=== PATIENT | male | born 1960 | race African-American/Black ===

== ENCOUNTER 2017-05-24 00:43 | Inpatient (IN) | payer OTHER ==
[~2017-05-24] VITALS: Ht 188 cm; Wt 94.0 kg
[~2017-05-24 00:43] MED LIST: CEPH500C3 PO; HYDR-3533 PO
[2017-05-24 00:44] VITALS: BP 128/73; PULSE 79; RESP 16; TEMP 99; O2SAT 96
--- NOTE | 2017-05-24 00:57 | PD ---
HPI Chief Complaint: Injury Time Seen by Provider: 00:57 Travel History International Travel<30 days: No Contact w/Intl Traveler<30days: No Traveled to known affect area: No History of Present Illness HPI 57-year-old male came to the emergency room with history of right knee injury. Patient is not sure what happened but he thinks that he may have stepped on a pothole. Happened about 45 minutes ago. Since then he feels like he cannot bear weight on his knee since it has no strength. He tried standing up and fell landing on his knee again. Patient is not complaining so much of pain but says that he feels like his knee joint is deformed. 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 Vital signs are stable. [facility] Past Medical History Narrative Medical List of his past medical, surgical, social and family history is reviewed from the nursing note. Diminished Hearing: No Past Surgical History Other Surgery: Yes (CHEMO NUCLEALISIS OF DISC ) Social History Alcohol Use: No Tobacco Use: No Substance Use: No Allergies-Medications (Allergen,Severity, Reaction): Coded Allergies: No Known Allergies (Verified Adverse Reaction, Unknown, 05/24/17) Comments No known drug allergies. Reported Meds & Prescriptions Reported Meds & Active Scripts Active Reported Aspirin 325 Mg Tab 325 Mg PO DAILY Narrative Medication List of his home medications reviewed from the nursing note. Review of Systems Except as stated in HPI: all other systems reviewed are Neg Physical Exam Narrative GENERAL: Awake, alert, no obvious distress SKIN: Focused skin assessment warm/dry. HEAD: Atraumatic. Normocephalic. EYES: Pupils equal and round. No scleral icterus. No injection or drainage. ENT: No nasal bleeding or discharge. Mucous membranes pink and moist. NECK: Trachea midline. No JVD. CARDIOVASCULAR: Regular rate and rhythm. No murmur appreciated. RESPIRATORY: No accessory muscle use. Clear to auscultation. Breath sounds equal bilaterally. GASTROINTESTINAL: Abdomen soft, non-tender, nondistended. Hepatic and splenic margins not palpable. MUSCULOSKELETAL: Right knee deformity in the form of significant depression in the suprapatellar area with detached quadricep tendon that can be palpated about an inch proximal to the patella. No clubbing. No cyanosis. No edema. NEUROLOGICAL: Awake and alert. No obvious cranial nerve deficits. Motor grossly within normal limits. Normal speech. PSYCHIATRIC: Appropriate mood and affect; insight and judgment normal. Data Data Last Documented VS Vital Signs Date Time Temp Pulse Resp B/P (MAP) Pulse Ox O2 Delivery O2 Flow Rate FiO2 05/24/17 01:05 Room Air 05/24/17 00:44 99.0 79 16 128/73 (91) 96 Orders Orders Knee, Comp Inc Add Vws(4+Vws) (05/24/17 ) ^ Knee Immobilizer (05/24/17 01:43) Admit Order (Ed Use Only) (05/24/17 02:23) MDM Medical Decision Making Medical Screen Exam Complete: Yes Emergency Medical Condition: Yes Medical Record Reviewed: Yes Differential Diagnosis Quadricep tendon rupture, patellar fracture Narrative Course 2:28 AM x-rays negative for any fracture. Based on the clinical diagnosis I discussed the case with Dr. Montes De Oca who is on-call for orthopedics. Wanted the patient to be medically admitted and Dr. Kerns will try to fit in his case in the morning as per him. He wants the patient nothing by mouth. I've explained all this to the patient. I discussed the case with the hospitalist has accepted the patient. Procedures EKG Prior to Arrival: No Physician Communication Physician Communication Dr. Martínez Diagnosis Primary Impression: Quadriceps tendon rupture Qualified Codes: S76.111A - Strain of right quadriceps muscle, fascia and tendon, initial encounter Admitting Information Admitting Physician Requests: it Tyson Malik MD May 24, 2017 00:57
[2017-05-24] MEDS ORDERED: ASPI-183 PO (01:10)
--- NOTE | 2017-05-24 01:33 | RADRPT ---
EXAM DATE/TIME: 05/24/2017 01:17 [facility] COMPARISON: No previous studies available for comparison. INDICATIONS : Pt fell onto right knee MEDICAL HISTORY : None. SURGICAL HISTORY : None. ENCOUNTER: Initial ACUITY: 1 day PAIN SCORE: 8/10 LOCATION: Right Knee FINDINGS: The bony structures are grossly intact. No joint effusion is seen. No definite fracture or joint di slocation is seen. There are 2 well-corticated loose bodies in the suprapatellar region. CONCLUSION: No acute disease. Nitin Solorzano MD on May 24, 2017 at 1:31 Board Certified Radiologist. This report was verified electronically.
[2017-05-24] MEDS ORDERED: SODIUM CHLORIDE 0.9% FLUSH 10 ML FLUSH IV FLUSH PRN (02:45)
[2017-05-24] MEDS ORDERED: NALOXONE HCL 0.4 MG/ML AMP IV PUSH PRN (02:45)
[2017-05-24] MEDS ORDERED: MORPHINE SULFATE 2 MG/ML INJ IV PUSH PRN (02:45)
[2017-05-24 03:30] VITALS: BP 118/72; PULSE 64; RESP 18; TEMP 97.1; O2SAT 96
[2017-05-24] MEDS ORDERED: POVIDONE IODINE 5% (ANTISEPSIS KIT) 4 APPLICATIONS EACH NARE PRN (03:45)
[2017-05-24] MEDS ORDERED: SODIUM CHLORID 0.9% 500 ML IV PRN (03:45)
[2017-05-24] MEDS ORDERED: METOPROLOL TARTRATE 25 MG TAB PO PRN (03:45)
[2017-05-24] MEDS ORDERED: INSULIN HUMAN REGULAR 1,000 UNITS/10 ML VIAL SQ PRN (03:45)
[2017-05-24] MEDS ORDERED: LACTATED RINGER'S 1000 ML IV PRN (03:45)
[2017-05-24] MEDS ORDERED: CHLORHEXIDINE GLUCONATE 2 % 1 PACK (2 CLOTHS) TOPICAL PRN (03:45)
--- NOTE | 2017-05-24 04:34 | HHI.HP ---
HPI Service [place] [facility] Primary Care Physician [facility] Admission Diagnosis quadricep tendon rupture Diagnoses: Travel History International Travel<30 Days: No Contact w/Intl Traveler <30 Da: No Traveled to Known Affected Are: No History of Present Illness hx from patient, ER MD and nursing staff slipped on wet pavement during the rain fell onto right knee no syncope did not pass out takes asa 325 mg daily no premonitory symptoms had second fall after he immediately get up from the fall and realized cant support the weight no other symptoms Review of Systems Except as stated in HPI: all other systems reviewed are Neg Past Family Social History Past Medical History last stress test was 2 yrs ago and wnl Past Surgical History 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 dislocated shoulder sx Reported Medications asa 325mg po daily pde tums Allergies: Coded Allergies: No Known Allergies (Verified Allergy, Unknown, 05/24/17) Family History father lung cancer mom gi ulcer sister dm, htn Social History occasionally smokes - never on regular basis drinks wine a couple of glasses a night no drugs Physical Exam Vital Signs Vital Signs Date Time Temp Pulse Resp B/P (MAP) Pulse Ox O2 Delivery O2 Flow Rate FiO2 05/24/17 03:30 05/24/17 01:05 Room Air 05/24/17 00:44 99.0 79 16 128/73 (91) 96 Room Air Physical Exam GENERAL: This is a well-nourished, well-developed patient, in no apparent distress. SKIN: No rashes, ecchymoses or lesions. Cool and dry. HEAD: Atraumatic. Normocephalic. No temporal or scalp tenderness. EYES: No scleral icterus. No injection or drainage. ENT: Nose without bleeding, purulent drainage or septal hematoma. Airway patent. NECK: Trachea midline. No JVD CARDIOVASCULAR: Regular rate and rhythm without murmurs, gallops, or rubs. RESPIRATORY: Clear to auscultation. Breath sounds equal bilaterally. No wheezes , rales, or rhonchi. GASTROINTESTINAL: Abdomen soft, non-tender, nondistended. No guarding. MUSCULOSKELETAL: Extremities without clubbing, cyanosis, or edema. No calf tenderness. right knee in knee immobilizer NEUROLOGICAL: Awake and alert. Motor and sensory grossly within normal limits. . Normal speech. Imaging Last 48 hours Impressions Knee X-Ray 05/24/17 0000 Signed Impressions: Service Date/Time: Wednesday, May 24, 2017 01:17 - CONCLUSION: No acute disease. Nitin Solorzano MD Chest X-Ray 05/24/17 0000 Signed Impressions: Service Date/Time: Wednesday, May 24, 2017 04:43 - CONCLUSION: No acute disease. MD Ana Car VTE Risk Assessment Caprini VTE Risk Assessment: Mod/High Risk (score >= 2) Caprini Risk Assessment Model Point Value = 1 Point Value = 2 Point Value = 3 Point Value = 5 Age 41-60 Minor surgery BMI > 25 kg/m2 Swollen legs Varicose veins or History of unexplained or recurrent spontaneous Oral contraceptives or hormone replacement Sepsis (< 1 month) Serious lung disease, including pneumonia (< 1 month) Abnormal pulmonary function Acute myocardial infarction Congestive heart failure (< 1 month) History of inflammatory bowel disease Medical patient at bed rest Age 61-74 Arthroscopic surgery Major open surgery (> 45 min) Laparoscopic surgery (> 45 min) Malignancy Confined to bed (> 72 hours) Immobilizing plaster cast Central venous access Age >= 75 History of VTE Family history of VTE Factor V Leiden Prothrombin [id number] Lupus anticoagulant Anticardiolipin antibodies Elevated serum homocysteine Heparin-induced thrombocytopenia Other congenital or acquired thrombophilia Stroke (< 1 month) Elective arthroplasty Hip, pelvis, or leg fracture Acute spinal cord injury (< 1 month) Prophylaxis Regimen Total Risk Factor Score Risk Level Prophylaxis Regimen 0-1 Low Early ambulation 2 Moderate Order ONE of the following: *Sequential Compression Device (SCD) *Heparin 5000 units SQ BID 3-4 Higher Order ONE of the following medications: *Heparin 5000 units SQ TID *Enoxaparin/Lovenox 40 mg SQ daily (WT < 150 kg, CrCl > 30 mL/min) *Enoxaparin/Lovenox 30 mg SQ daily (WT < 150 kg, CrCl > 10-29 mL/min) *Enoxaparin/Lovenox 30 mg SQ BID (WT < 150 kg, CrCl > 30 mL/min) AND/OR *Sequential Compression Device (SCD) 5 or more Highest Order ONE of the following medications: *Heparin 5000 units SQ TID (Preferred with Epidurals) *Enoxaparin/Lovenox 40 mg SQ daily (WT < 150 kg, CrCl > 30 mL/min) *Enoxaparin/Lovenox 30 mg SQ daily (WT < 150 kg, CrCl > 10-29 mL/min) *Enoxaparin/Lovenox 30 mg SQ BID (WT < 150 kg, CrCl > 30 mL/min) AND *Sequential Compression Device (SCD) Assessment and Plan Assessment and Plan Impression: s/p fall right patella tendon rutpure daily alcohol use Plan: ortho consulted OR in am pain control thiamine ciwa protocol preop labs, ekg, cxr dvt prophylaxis post op with lovenox Discussed Condition With patient, ER MD , nursing staff Physician Certification 2 Midnight Certification Type: Admission for Inpatient Services Order for Inpatient Services The services are ordered in accordance with Medicare regulations or non- Medicare payer requirements, as applicable. In the case of services not specified as inpatient-only, they are appropriately provided as inpatient services in accordance with the 2-midnight benchmark. Estimated LOS (days): 2 days is the estimated time the patient will need to remain in the hospital, assuming treatment plan goals are met and no additional complications. Post-Hospital Plan: Home Cuate Dye MD May 24, 2017 04:34
--- NOTE | 2017-05-24 05:43 | RADRPT ---
EXAM DATE/TIME: 05/24/2017 04:43 [facility] COMPARISON: No previous studies available for comparison. INDICATIONS : Evaluate for pneumonia, pneumothorax, or other communicable diseases. Pre-op. MEDICAL HISTORY : None. SURGICAL HISTORY : None. ENCOUNTER: Initial ACUITY: 1 day PAIN SCORE: 0/10 LOCATION: Bilateral chest FINDINGS: A single view of the chest demonstrates the lungs to be symmetrically aerated without evidence of mas s, infiltrate or effusion. The cardiomediastinal contours are unremarkable. Osseous structures are intact. CONCLUSION: No acute disease. Nitin Solorzano MD on May 24, 2017 at 5:42 Board Certified Radiologist. This report was verified electronically.
[2017-05-24 06:21] LABS: AUTOMATED NEUTROPHIL # 4.8 TH/MM3 (1.8-7.7); BASOPHIL % 0.3 % (0.0-2.0); EOSINOPHIL # 0.2 TH/MM3 (0-0.4); EOSINOPHIL % 2.5 % (0.0-4.0); HEMATOCRIT 38.7 % (39.0-51.0); HEMO FLAGS DIFF FINAL; LYMPH % 31.1 % (9.0-44.0); LYMPHOCYTE # 2.7 TH/MM3 (1.0-4.8); MEAN CELL VOLUME 96.5 FL (80.0-100.0); MEAN CORPUSCULAR HEMOGLOBIN 32.8 PG (27.0-34.0); MONO % 11.9 % (0.0-8.0); NEUT % 54.2 % (16.0-70.0); PLATELET COUNT 190 TH/MM3 (150-450); RED BLOOD COUNT 4.01 MIL/MM3 (4.50-5.90); RED CELL DISTRIBUTION WIDTH 14.8 % (11.6-17.2); WHITE BLOOD COUNT 8.8 TH/MM3 (4.0-11.0)
[2017-05-24] MEDS ORDERED: FLUMAZENIL 0.5 MG/5 ML VIAL IV PUSH PRN (06:30)
[2017-05-24] MEDS ORDERED: LORazepam 2 MG/ML VIAL IV PUSH PRN ×4 (06:30)
[2017-05-24] MEDS ORDERED: LORazepam 1 MG TAB PO PRN (06:30)
[2017-05-24] MEDS ORDERED: LORazepam 2 MG TAB PO PRN (06:30)
[2017-05-24] MEDS ORDERED: THIAMINE INJ 100 MG in SODIUM CHLORIDE 0.9% INJ 100 ML IV ONE (06:30)
[2017-05-24 06:38] LABS: ANION GAP 7 MEQ/L (5-15); APTT (PATIENT) 23.1 SEC (24.3-30.1); AST (GOT) 33 U/L (15-37); BICARBONATE 25.1 MEQ/L (21.0-32.0); BLOOD UREA NITROGEN 10 MG/DL (7-18); CHLORIDE 108 MEQ/L (98-107); GLOMERULAR FILTRATION RATE 127 ML/MIN (>89); INTERNATIONAL NORMALIZED RATIO 1.1 RATIO; POTASSIUM 3.8 MEQ/L (3.5-5.1); PROTHROMBIN TIME - PATIENT 11.1 SEC (9.8-11.6); SODIUM (NA) 140 MEQ/L (136-145)
[2017-05-24 06:39] LABS: ALT (GPT) 30 U/L (12-78)
[2017-05-24 06:42] LABS: ALKALINE PHOSPHATASE 34 U/L (45-117); TOTAL BILIRUBIN ADULT 0.3 MG/DL (0.2-1.0)
--- NOTE | 2017-05-24 06:48 | PD.ORT.PN ---
Subjective Subjective Remarks s/p fall at home reports right knee pain no other complaints. Objective Vitals Vital Signs Date Time Temp Pulse Resp B/P (MAP) Pulse Ox O2 Delivery O2 Flow Rate FiO2 05/24/17 03:30 05/24/17 03:30 97.1 64 18 118/72 (87) 96 05/24/17 01:05 Room Air 05/24/17 00:44 99.0 79 16 128/73 (91) 96 Room Air Result Diagram: 05/24/17 0540 05/24/17 0540 Other Results Laboratory Tests Test 05/24/17 05:40 Prothromb Time International Ratio 1.1 RATIO Prothrombin Time 11.1 SEC (9.8-11.6) Imaging Last 24 hours Impressions Knee X-Ray 05/24/17 0000 Signed Impressions: Service Date/Time: Wednesday, May 24, 2017 01:17 - CONCLUSION: No acute disease. Nitin Solorzano MD Chest X-Ray 05/24/17 0000 Signed Impressions: Service Date/Time: Wednesday, May 24, 2017 04:43 - CONCLUSION: No acute disease. Nitin Solorzano MD Objective Remarks RLE: +knee brace. palpable and visible deformity proximal to the patella. nvi Assessment & Plan Assessment and Plan 1) right Quad tendon rupture -npo -consents -surgery today Dav Gregorio/Pewter Fabricator ANETA May 24, 2017 06:48
[2017-05-24] MEDS ORDERED: WALKER/ADULT/FO1 MIS (06:49)
[2017-05-24] MEDS ORDERED: HYDR-3580 PO (06:49)
--- NOTE | 2017-05-24 06:50 | HHI.FF ---
Face to Face Verification Diagnosis: (1) Quadriceps tendon rupture Physical Therapy Gait training, Safety evaluation Canvas Knee Splint: At all times Right LE Weight Bearing: Non WB (no more than 50lbs), No Strengthening, No Quad Sets Right LE Range of Motion: No ROM Nursing Dressing Changes: Do not change dressing, Gil wrap, 4x4s, Xeroform I have seen patient Raman Matute on 05/24/17. My clinical findings support the need for the requested home health care services because: Ltd mobility - disease progression I certify that my clinical findings support that this patient is homebound because: Post-op weakness Dav Gregorio/First Janette CORNELL May 24, 2017 06:50
--- NOTE | 2017-05-24 07:49 | EKG ---
Date Performed: 05/24/2017 Time Performed: 05:49:33 PTAGE: 57 years EKG: SINUS BRADYCARDIA BORDERLINE ECG INTERPRETATION BASED ON A DEFAULT AGE OF 41 YEARS NO PREVIOUS TRACING DOCTOR: Elier Gongora Interpretating Date/Time 05/24/2017 07:48:36
[2017-05-24 08:00] VITALS: BP 133/79; PULSE 65; RESP 18; TEMP 97.4; O2SAT 100
[2017-05-24] MEDS ORDERED: BUPIVACAINE/EPINEPHRINE 0.25% PF 30 ML VIAL ONE (08:52)
[2017-05-24] MEDS ORDERED: GENTAMICIN SULFATE 80 MG/2 ML VIAL ONE (08:52)
[2017-05-24] MEDS ORDERED: VANCOMYCIN HCL 1000 MG VIAL ONE (08:52)
[2017-05-24] MEDS: SODIUM CHLORIDE 0.9% FLUSH 10 ML FLUSH IV FLUSH SCH ×2 (09:00→21:30)
--- NOTE | 2017-05-24 11:02 | PD.OP ---
cc: Dylan Kerns MD Operative Report Date of Surgery: May 24, 2017 Preoperative Diagnosis: Right quadriceps tendon rupture Postoperative Diagnosis: Procedure: Primary repair right quadriceps tendon Surgeon: Dylan Kerns Talent Recruiter(s): ROSALIE Díaz PA-C The surgical procedure was assisted by my physician assistant professor of marine biology. My P.A. presence was necessary throughout this case for the manipulation and positioning of the surgical extremity. My P.A. was assisting me throughout the duration of this procedure. The skill set of a physician assistant professor of marine biology was medically necessary to complete this procedure. During the surgical case the surgical dressing maker was working at the back table and the physician assistant professor of marine biology was directly assisting me. Operation and Findings: Plan of activity: CKS at all times, Partial weightbearing 50 lbs with knee immobilizer on, start passive range of motion knee 0-45 in 2 weeks This patient had an injury resulting in complete right quadriceps tendon rupture. Informed consent was confirmed preoperatively and informed consent was obtained. I had a detailed discussion with the patient regarding the risks and benefits of surgery. Patient was brought to the operating room and placed on the OR table. IV sedation and GETA were administered by anesthesiologist and IV antibiotics were given prior to incision. A timeout procedure was performed. The operative leg was prepped with alcohol followed by Hibiclens and draped in the usual sterile fashion. The procedure began with a 4-inch incision over the anterior knee. Subcutaneous tissue was dissected with Bovie. At this point the proximal patella and distal quadriceps tendon were visualized. The knee joint was thoroughly irrigated. The proximal pole patella was lightly debrided with a rongeur. At this point attention was turned to quadriceps tendon repair. 3 drill tunnels were created from superior pole of the patella to the inferior pole of the patella. Two #5 FiberWire sutures were now placed into the quadriceps tendon in a Leeds style fashion. The sutures were now passed through the drill holes of the patella. The patella was now reduced to the quadriceps tendon. Sutures were tensioned and tied. The remainder of the retinaculum was now closed with #1 Vicryls. Subcutaneous tissue was closed with 3-0 Vicryl and skin was closed with paradise. Sterile dressings were applied. The patient placed into a knee immobilizer and was transferred to recovery in stable condition. Needle and sponge counts were correct. Dylan Kerns MD May 24, 2017 11:01
[2017-05-24] MEDS ORDERED: *morphine SULFATE 8 MG/ML PERIprocedure ONLY ONE (11:31)
[2017-05-24] MEDS ORDERED: DEXAMETHASONE SOD PHOS 4 MG/ML VIAL ONE (11:32)
[2017-05-24] MEDS ORDERED: BUPIVACAINE HCL PF 0.5% 30 ML VIAL ONE (11:32)
--- NOTE | 2017-05-24 11:54 | MB ---
cc: JOANNE SANTIAGO DATE OF CONSULTATION: 05/24/2017 REASON FOR CONSULTATION: Right knee quadriceps tendon rupture. CONSULTING PHYSICIAN Dr. 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 He slipped on wet pavement causing injury to his right knee. He had difficulty standing or ambulating. He presented to the emergency room. Evaluation in the emergency department revealed a quadriceps tendon rupture. He is currently awake and alert on the orthopedic floor. His only complaint is his right knee. Pain is worse with movement, it is improved with rest. PAST MEDICAL HISTORY None. MEDICATIONS medications include Aspirin Tums ALLERGIES NO KNOWN DRUG ALLERGIES. SURGERIES The patient had a cervical chemonucleolysis at age 22 and surgery for shoulder dislocation. ILLNESSES The patient has had previous cardiac stress test which was reportedly normal. He denies any medical problems. FAMILY HISTORY: Family history is positive for lung cancer in father, and gastrointestinal cancer in his mother and diabetes in sister. SOCIAL HISTORY The patient drinks wine. He denies drug use. He smokes on occasion. REVIEW OF SYSTEMS The patient denies headache, visual changes, neck pain, chest pain, shortness of breath, abdominal pain ounce or recent weight loss, numbness and extremities. He complains of right leg pain. Pain is worse with movement. PHYSICAL EXAMINATION IN GENERAL: The patient is a well-developed, well-nourished 57-year male in no acute distress. He is awake and alert. He is alert and x3. VITAL SIGNS: Temperature 97.4, pulse 65, respirations 18, blood pressure 133/79, O2 sat 5% on room air. HEAD, EYES, EARS, NOSE, AND THROAT: The patient is normocephalic. Pupils are equal. NECK: Soft, nontender. Trachea is midline. ABDOMEN: Soft, nontender, nondistended. EXTREMITIES: Examination of bilateral upper extremities reveals no pain with shoulder or wrist motion. She has intact sensation in all fingers. She has good cap refill fingers. Examination of left leg reveals no pain with hip, knee or ankle motion. Skin is intact. Dorsalis pedis pulses palpable. Examination of right leg reveals no tenderness on his hip or ankle sensation is intact in right foot. Dorsalis pedis pulses palpable. Examination of his knee reveals a palpable defect along the quadriceps tendon. This skin is intact. His knee is stable to varus stress. RADIOLOGIC: X-rays of right knee were reviewed x-rays reveal that the patella Constricted inferiorly consistent with quadriceps tendon rupture. No fracture noted. IMPRESSION Right knee quadriceps tendon rupture. PLAN The treatment options were discussed with the patient at this point I would recommend primary repair of right quadriceps tendon. Risks of surgery include bleeding, infection, injury to blood vessels, knee stiffness, recurrent disruption of the quadriceps tendon as well as medical complications associated anesthesia. All questions were answered. I will plan on surgery today. A mid-level provider in my office (nurse practitioner or physician night assistant) may see this patient on follow-up visits and continue to implement the objectives of this plan including: Starting or adjusting medications, injections , cast application, orthotics, brace application, physical therapy, radiological studies (including x-ray, MRI, CT, ultrasound, bone scan), vascular studies, neurologic studies, specialist consultation, and proceeding with surgical management, as appropriate. MD PAUL Paulino/boyd /11:02 AM /11:46 AM SHAMIR
[2017-05-24] MEDS: LACTATED RINGER'S 1000 ML INJ 1,000 ML IV SCH (12:00)
[2017-05-24] MEDS ORDERED: MORPHINE SULFATE 4 MG/ML INJ IV PUSH PRN (12:00)
[2017-05-24] MEDS ORDERED: ONDANSETRON HCL 4 MG/2 ML VIAL IVP PRN (12:00)
[2017-05-24] MEDS ORDERED: diphenhydrAMINE HCL 25 MG CAP PO PRN (12:00)
[2017-05-24] MEDS ORDERED: Post-op Orders (for Pharmacy) MISC XX ONE (12:00)
[2017-05-24] MEDS ORDERED: ACETAMINOPHEN/HYDROcodone 325 MG/7.5 MG TAB PO PRN (12:00)
--- NOTE | 2017-05-24 12:04 | PD.ORT.PN ---
Subjective Subjective Remarks POD 0 s/p open repair of right quadriceps tendon stable in PACU Objective Vitals Vital Signs Date Time Temp Pulse Resp B/P (MAP) Pulse Ox O2 Delivery O2 Flow Rate FiO2 05/24/17 08:00 97.4 65 18 133/79 (97) 100 05/24/17 03:30 05/24/17 03:30 97.1 64 18 118/72 (87) 96 05/24/17 01:05 Room Air 05/24/17 00:44 99.0 79 16 128/73 (91) 96 Room Air I/O 05/23/17 05/23/17 05/23/17 05/24/17 05/24/17 05/24/17 07:00 15:00 23:00 07:00 15:00 23:00 Intake Total 0 ml 900 ml Output Total 400 ml 20 ml Balance -400 ml 880 ml Intake Oral 0 ml Other 900 ml Output Urine Total 400 ml Estimated Blood Loss 20 ml # Bowel Movements 0 Result Diagram: 05/24/17 0540 05/24/17 0540 Other Results Laboratory Tests Test 05/24/17 05:40 Prothromb Time International Ratio 1.1 RATIO Prothrombin Time 11.1 SEC (9.8-11.6) Imaging Last 24 hours Impressions Knee X-Ray 05/24/17 0000 Signed Impressions: Service Date/Time: Wednesday, May 24, 2017 01:17 - CONCLUSION: No acute disease. Nitin Solorzano MD Chest X-Ray 05/24/17 0000 Signed Impressions: Service Date/Time: Wednesday, May 24, 2017 04:43 - CONCLUSION: No acute disease. Nitin Solorzano MD Objective Remarks RLE: +knee brace. dressings clean and dry. intact. Assessment & Plan Assessment and Plan 1) Right Quad tendon rupture s/p open repair - POD 0 -CKS at all times -no ROM at this time. plan for advancement of ROM at discharge visit in 2 weeks -PWB up to 50lbs with knee brace on -daily dressing changes POD 2 -CM for HHC -plan for DC home with HHC Saturday if doing well -f/u with Gonzalez or PA in 2 weeks Dav Gregorio PA/Wire Weaver Cloth PA May 24, 2017 12:04
--- NOTE | 2017-05-24 12:23 | HHI.PR ---
Subjective Remarks patient was seen post-op; in no acute distress. s/p repair of the right Quadriceps tendon. denies pain at this time. no other complaints. Objective Vitals Vital Signs Date Time Temp Pulse Resp B/P (MAP) Pulse Ox O2 Delivery O2 Flow Rate FiO2 05/24/17 11:16 97.8 76 20 133/78 (96) 99 Nasal Cannula 2 05/24/17 08:00 97.4 65 18 133/79 (97) 100 05/24/17 03:30 05/24/17 03:30 97.1 64 18 118/72 (87) 96 05/24/17 01:05 Room Air 05/24/17 00:44 99.0 79 16 128/73 (91) 96 Room Air I/O 05/23/17 05/23/17 05/23/17 05/24/17 05/24/17 05/24/17 07:00 15:00 23:00 07:00 15:00 23:00 Intake Total 0 ml 900 ml Output Total 400 ml 20 ml Balance -400 ml 880 ml Intake Oral 0 ml Other 900 ml Output Urine Total 400 ml Estimated Blood Loss 20 ml # Bowel Movements 0 Result Diagram: 05/24/17 0540 05/24/17 0540 Imaging Last Impressions Knee X-Ray 05/24/17 0000 Signed Impressions: Service Date/Time: Wednesday, May 24, 2017 01:17 - CONCLUSION: No acute disease. Nitin Solorzano MD Chest X-Ray 05/24/17 0000 Signed Impressions: Service Date/Time: Wednesday, May 24, 2017 04:43 - CONCLUSION: No acute disease. Nitin Solorzano MD Objective Remarks GENERAL: This is a well-nourished, well-developed patient, in no apparent distress. CARDIOVASCULAR: Regular rate and regular rhythm without murmurs, gallops, or rubs. RESPIRATORY: Clear to auscultation. Breath sounds equal bilaterally. No wheezes , rales, or rhonchi. GASTROINTESTINAL: Abdomen soft, non-tender, nondistended. Normal, active bowel sounds MUSCULOSKELETAL: right lower extremity covered with clean dressing. NEURO: Alert & Oriented x4 to person, place, time, situation. Moves all ext x4 Procedures open repair of the ruptured right Quadriceps tendon. Medications and IVs Current Medications Sodium Chloride (NS Flush) 2 ml UNSCH PRN IV FLUSH FLUSH AFTER USING IV ACCESS ; Start 05/24/17 at 02:45 Sodium Chloride (NS Flush) 2 ml BID IV FLUSH ; Start 05/24/17 at 09:00 Naloxone HCl (Narcan Inj) 0.4 mg UNSCH PRN IV PUSH SEE LABEL COMMENTS; Start 05/24/17 at 02:45 Morphine Sulfate (Morphine Inj) 2 mg Q3H PRN IV PUSH pain>5; Start 05/24/17 at 02:45 Lactated Ringer's 1,000 ml @ 30 mls/hr Q24H PRN IV SEE LABEL COMMENTS Last administered on 05/24/17t 08:35; Start 05/24/17 at 03:45; Stop 05/27/17 at 03: 44 Sodium Chloride 500 ml @ 30 mls/hr [id number] PRN IV SEE LABEL COMMENTS; Start at 03:45; Stop 05/27/17 at 03:44 Metoprolol Tartrate (Lopressor) 25 mg DEPLOYMENT ENGINEER PRN PO SEE LABEL COMMENTS; Start 05/24/17 at 03:45; Stop 05/27/17 at 03:44 Povidone Iodine (Betadine 5% Antisepsis Kit) 1 applic [employer]MENT ENGINEER PRN EACH NARE SEE LABEL COMMENTS; Start 05/24/17 at 03:45; Stop 05/27/17 at 03:44 Chlorhexidine Gluconate (Chlorhexidine 2% Cloth) 3 pack [employer]ER PRN TOPICAL SEE LABEL COMMENTS; Start 05/24/17 at 03:45; Stop 05/27/17 at 03:44 Insulin Human Regular (NovoLIN R INJ) See Protocol Table ... DEPLOYMENT ENGINEER PRN SQ SEE PROTOCOL TABLE; Start 05/24/17 at 03:45; Stop 05/27/17 at 03:44 Thiamine HCl 100 mg/Sodium Chloride 101 ml @ 101 mls/hr ONCE ONCE IV ; Start 05/24/17 at 06:30; Stop 05/24/17 at 07:29; Status DC Thiamine HCl (Vitamin B1) 100 mg DAILY PO ; Start 05/25/17 at 09:00 Flumazenil (Romazicon Inj) 0.2 mg Q1M PRN IV PUSH SEE LABEL COMMENTS; Start at 06:30 Lorazepam (Ativan) 1 mg Q4H PRN PO DEBRA 8 - 10; Start 05/24/17 at 06:30 Lorazepam (Ativan Inj) 1 mg Q4H PRN IV PUSH CIWA 8 - 10; Start 05/24/17 at 06: 30 Lorazepam (Ativan) 2 mg Q2H PRN PO CIWA 11-14; Start 05/24/17 at 06:30 Lorazepam (Ativan Inj) 2 mg Q2H PRN IV PUSH CIWA 11-14; Start 05/24/17 at 06:30 Lorazepam (Ativan Inj) 2 mg Q1H PRN IV PUSH CIWA 15-20; Start 05/24/17 at 06:30 Lorazepam (Ativan Inj) 2 mg Q15M PRN IV PUSH CIWA > 20; Start 05/24/17 at 06:30 Vancomycin HCl (Vancomycin Inj) 1,000 mg STK-MED ONCE .ROUTE ; Start 05/24/17 at 08:52; Stop 05/24/17 at 08:53; Status DC Bupivacaine HCl/ Epinephrine Bitart (Marcaine-Epi Pf 0.25% Inj) 30 ml STK-MED ONCE .ROUTE Last administered on 05/24/17 08:52; Start 05/24/17 at 08:52; Stop 05/24/17 at 08:53; Status DC Gentamicin Sulfate (Gentamicin Inj) 160 mg STK-MED ONCE .ROUTE Last administered on 05/24/17 10:24; Start 05/24/17 at 08:52; Stop 05/24/17 at 08:53 ; Status DC Lactated Ringer's 1,000 ml @ 80 mls/hr [id number] IV Last administered on 12:00; Start 05/24/17 at 12:00 Miscellaneous Information (Post-op Orders (for Pharmacy)) STAT ONCE XX ; Start 05/24/17 at 12:00; Stop 05/24/17 at 12:01; Status DC Enoxaparin Sodium (Lovenox Inj) 30 mg Q24H SQ ; Start 05/25/17 at 11:00 Cefazolin Sodium/ Dextrose 50 ml @ 100 mls/hr Q8H IV ; Start 05/24/17 at 18:00 ; Stop 05/25/17 at 10:29 Acetaminophen/ Hydrocodone Bitart ([place] 7.5-325 Mg) 1 tab Q3H PRN PO PAIN 3< 10; Start 05/24/17 at 12:00 Ondansetron HCl (Zofran Inj) 4 mg Q4H PRN IVP NAUSEA OR VOMITING; Start at 12:00 Calcium/Vitamin D (Oscal-D 250-125) 250 mg TID PO ; Start 05/24/17 at 13:00 Diphenhydramine HCl (Benadryl) 25 mg Q6H PRN PO ITCHING; Start 05/24/17 at 12: 00 Morphine Sulfate (Morphine Inj) 4 mg Q3H PRN IV PUSH break through pain; Start 05/24/17 at 12:00 Morphine Sulfate (*morphine INJ PERIprocedure ONLY) 8 mg STK-MED ONCE .ROUTE Last administered on 05/24/17t 11:31; Start 05/24/17 at 11:31; Stop 05/24/17 at 11:32; Status DC Dexamethasone Sodium Phosphate (Decadron Inj) 4 mg STK-MED ONCE .ROUTE ; Start 05/24/17 at 11:32; Stop 05/24/17 at 11:33; Status DC Bupivacaine HCl (Marcaine Pf 0.5% Inj) 30 ml STK-MED ONCE .ROUTE ; Start at 11:32; Stop 05/24/17 at 11:33; Status DC A/P Assessment and Plan A/P - right Quadriceps tendon rupture- s/p surgical repair. continue pain control- management per ortho. -DVT prophylaxis with subq Lovenox- per ortho. Discharge Planning dc home possibly tomorrow if stable and cleared by ortho. Alexia Rome MD May 24, 2017 12:23
[2017-05-24] MEDS: CALCIUM/VITAMIN D 250 MG/125 U TAB PO SCH ×2 (13:00→18:49)
[2017-05-24] MEDS ORDERED: DO NOT ADM ANY ANTICOAGULANT DRUGS PRN (13:00)
[2017-05-24 16:00] VITALS: BP 121/69; PULSE 68; RESP 18; TEMP 97.3; O2SAT 97
[2017-05-24 17:04] VITALS: O2SAT 95
[2017-05-24] MEDS: ceFAZolin 2 GM PREMIX 50 ML IV SCH (18:49)
[2017-05-25] VITALS: BP 130/69; PULSE 69; RESP 18; TEMP 98.7; O2SAT 95
[2017-05-25] MEDS: LACTATED RINGER'S 1000 ML INJ 1,000 ML IV SCH (00:19)
[2017-05-25] MEDS: ceFAZolin 2 GM PREMIX 50 ML IV SCH ×2 (02:08→09:56)
[2017-05-25 04:00] VITALS: BP 131/67; PULSE 68; RESP 18; TEMP 98.9; O2SAT 96
[2017-05-25 05:37] LABS: BASOPHIL # 0.1 TH/MM3 (0-0.2); BASOPHIL % 0.4 % (0.0-2.0); EOSINOPHIL % 0.1 % (0.0-4.0); HEMATOCRIT 36.9 % (39.0-51.0); HEMO FLAGS DIFF FINAL; LYMPH % 18.8 % (9.0-44.0); LYMPHOCYTE # 2.5 TH/MM3 (1.0-4.8); MEAN CELL VOLUME 95.4 FL (80.0-100.0); MEAN CORPUSCULAR HEMOGLOBIN 32.5 PG (27.0-34.0); MEAN CORPUSCULAR HGB CONC 34.1 % (32.0-36.0); MONO % 11.6 % (0.0-8.0); NEUT % 69.1 % (16.0-70.0); PLATELET COUNT 188 TH/MM3 (150-450); RED BLOOD COUNT 3.87 MIL/MM3 (4.50-5.90); RED CELL DISTRIBUTION WIDTH 14.4 % (11.6-17.2)
[2017-05-25 05:54] LABS: BICARBONATE 26.2 MEQ/L (21.0-32.0); POTASSIUM 3.9 MEQ/L (3.5-5.1)
--- NOTE | 2017-05-25 07:14 | PD.ORT.PN ---
Subjective Subjective Remarks pt doing better, has no complaints this morning ready to be discharged home today Objective Vitals Vital Signs Date Time Temp Pulse Resp B/P (MAP) Pulse Ox O2 Delivery O2 Flow Rate FiO2 05/25/17 04:00 98.9 68 18 131/67 (88) 96 05/25/17 00:00 98.7 69 18 130/69 (89) 95 05/24/17 23:38 Room Air 05/24/17 17:04 95 05/24/17 16:00 97.3 68 18 121/69 (86) 97 05/24/17 12:29 98.1 63 20 126/79 (95) 95 Nasal Cannula 2 05/24/17 12:15 63 20 126/79 (95) 95 Nasal Cannula 2 05/24/17 12:00 63 20 118/76 (90) 95 Nasal Cannula 2 05/24/17 11:45 66 20 130/79 (96) 95 05/24/17 11:30 66 20 126/81 (96) 95 Nasal Cannula 2 05/24/17 11:16 97.8 76 20 133/78 (96) 99 Nasal Cannula 2 05/24/17 08:00 97.4 65 18 133/79 (97) 100 I/O 05/24/17 05/24/17 05/24/17 05/25/17 05/25/17 05/25/17 07:00 15:00 23:00 07:00 15:00 23:00 Intake Total 0 ml 1500 ml 50 ml 530 ml Output Total 400 ml 20 ml 900 ml Balance -400 ml 1480 ml 50 ml -370 ml Intake Oral 0 ml 600 ml 480 ml IV Total 50 ml 50 ml Other 900 ml Output Urine Total 400 ml 900 ml Estimated Blood Loss 20 ml # Voids 3 # Bowel Movements 0 0 0 Result Diagram: 05/25/17 0510 05/25/17 0510 Imaging Last 24 hours Impressions Knee X-Ray 05/24/17 0000 Signed Impressions: Service Date/Time: Wednesday, May 24, 2017 01:17 - CONCLUSION: No acute disease. Nitin Solorzano MD Chest X-Ray 05/24/17 0000 Signed Impressions: Service Date/Time: Wednesday, May 24, 2017 04:43 - CONCLUSION: No acute disease. Nitin Solorzano MD Objective Remarks seen by Dr. Rip Van RLE: +knee brace. dressings clean and dry. intact. Assessment & Plan Assessment and Plan 1) Right Quad tendon rupture s/p open repair - POD #1 -CKS at all times -no ROM at this time. plan for advancement of ROM at discharge visit in 2 weeks -PWB up to 50lbs with knee brace on -daily dressing changes starting pod #2 -CM for HHC -discharge home today with [facility], orthopedically stable -f/u with [facility] or [facility] in 2 weeks Cindy Daniel May 25, 2017 07:14
[2017-05-25 08:00] VITALS: BP 120/67; PULSE 80; RESP 20; TEMP 98.9; O2SAT 97
[2017-05-25] MEDS ORDERED: THIAMINE HCL 100 MG TAB PO SCH (09:00)
[2017-05-25] MEDS: CALCIUM/VITAMIN D 250 MG/125 U TAB PO SCH (09:52)
[2017-05-25] MEDS: SODIUM CHLORIDE 0.9% FLUSH 10 ML FLUSH IV FLUSH SCH (09:56)
--- NOTE | 2017-05-25 10:19 | HHI.PR ---
Subjective Remarks in no acute distress. pain is fairly controlled. no new complaints. Objective Vitals Vital Signs Date Time Temp Pulse Resp B/P (MAP) Pulse Ox O2 Delivery O2 Flow Rate FiO2 05/25/17 08:00 98.9 80 20 120/67 (84) 97 05/25/17 04:00 98.9 68 18 131/67 (88) 96 05/25/17 00:00 98.7 69 18 130/69 (89) 95 05/24/17 23:38 Room Air 05/24/17 17:04 95 05/24/17 16:00 97.3 68 18 121/69 (86) 97 05/24/17 12:29 98.1 63 20 126/79 (95) 95 Nasal Cannula 2 05/24/17 12:15 63 20 126/79 (95) 95 Nasal Cannula 2 05/24/17 12:00 63 20 118/76 (90) 95 Nasal Cannula 2 05/24/17 11:45 66 20 130/79 (96) 95 05/24/17 11:30 66 20 126/81 (96) 95 Nasal Cannula 2 05/24/17 11:16 97.8 76 20 133/78 (96) 99 Nasal Cannula 2 I/O 05/24/17 05/24/17 05/24/17 05/25/17 05/25/17 05/25/17 07:00 15:00 23:00 07:00 15:00 23:00 Intake Total 0 ml 1500 ml 50 ml 530 ml Output Total 400 ml 20 ml 900 ml Balance -400 ml 1480 ml 50 ml -370 ml Intake Oral 0 ml 600 ml 480 ml IV Total 50 ml 50 ml Other 900 ml Output Urine Total 400 ml 900 ml Estimated Blood Loss 20 ml # Voids 3 # Bowel Movements 0 0 0 Result Diagram: 05/25/17 0510 05/25/17 0510 Imaging Last Impressions Knee X-Ray 05/24/17 0000 Signed Impressions: Service Date/Time: Wednesday, May 24, 2017 01:17 - CONCLUSION: No acute disease. Nitin Solorzano MD Chest X-Ray 05/24/17 0000 Signed Impressions: Service Date/Time: Wednesday, May 24, 2017 04:43 - CONCLUSION: No acute disease. Nitin Solorzano MD Objective Remarks GENERAL: This is a well-nourished, well-developed patient, in no apparent distress. CARDIOVASCULAR: Regular rate and regular rhythm without murmurs, gallops, or rubs. RESPIRATORY: Clear to auscultation. Breath sounds equal bilaterally. No wheezes , rales, or rhonchi. GASTROINTESTINAL: Abdomen soft, non-tender, nondistended. Normal, active bowel sounds MUSCULOSKELETAL: right lower extremity covered with clean dressing. NEURO: Alert & Oriented x4 to person, place, time, situation. Moves all ext x4 Procedures open repair of the ruptured right Quadriceps tendon. Medications and IVs Current Medications Sodium Chloride (NS Flush) 2 ml UNSCH PRN IV FLUSH FLUSH AFTER USING IV ACCESS ; Start 05/24/17 at 02:45 Sodium Chloride (NS Flush) 2 ml BID IV FLUSH Last administered on 05/25/17 09: 56; Start 05/24/17 at 09:00 Naloxone HCl (Narcan Inj) 0.4 mg UNSCH PRN IV PUSH SEE LABEL COMMENTS; Start 05/24/17 at 02:45 Morphine Sulfate (Morphine Inj) 2 mg Q3H PRN IV PUSH pain>5; Start 05/24/17 at 02:45 Lactated Ringer's 1,000 ml @ 30 mls/hr Q24H PRN IV SEE LABEL COMMENTS Last administered on 05/24/17 08:35; Start 05/24/17 at 03:45; Stop 05/27/17 at 03: 44 Sodium Chloride 500 ml @ 30 mls/hr [id number] PRN IV SEE LABEL COMMENTS; Start at 03:45; Stop 05/27/17 at 03:44 Metoprolol Tartrate (Lopressor) 25 mg FROZEN YOGURT MAKER PRN PO SEE LABEL COMMENTS; Start 05/24/17 at 03:45; Stop 05/27/17 at 03:44 Povidone Iodine (Betadine 5% Antisepsis Kit) 1 applic FROZEN YOGURT MAKER PRN EACH NARE SEE LABEL COMMENTS; Start 05/24/17 at 03:45; Stop 05/27/17 at 03:44 Chlorhexidine Gluconate (Chlorhexidine 2% Cloth) 3 pack FROZEN YOGURT MAKER PRN TOPICAL SEE LABEL COMMENTS; Start 05/24/17 at 03:45; Stop 05/27/17 at 03:44 Insulin Human Regular (NovoLIN R INJ) See Protocol Table ... FROZEN YOGURT MAKER PRN SQ SEE PROTOCOL TABLE; Start 05/24/17 at 03:45; Stop 05/27/17 at 03:44 Thiamine HCl 100 mg/Sodium Chloride 101 ml @ 101 mls/hr ONCE ONCE IV ; Start 05/24/17 at 06:30; Stop 05/24/17 at 07:29; Status DC Thiamine HCl (Vitamin B1) 100 mg DAILY PO Last administered on 05/25/17 09:51 ; Start 05/25/17 at 09:00 Flumazenil (Romazicon Inj) 0.2 mg Q1M PRN IV PUSH SEE LABEL COMMENTS; Start at 06:30 Lorazepam (Ativan) 1 mg Q4H PRN PO CIWA 8 - 10; Start 05/24/17 at 06:30 Lorazepam (Ativan Inj) 1 mg Q4H PRN IV PUSH CIWA 8 - 10; Start 05/24/17 at 06: 30 Lorazepam (Ativan) 2 mg Q2H PRN PO CIWA 11-14; Start 05/24/17 at 06:30 Lorazepam (Ativan Inj) 2 mg Q2H PRN IV PUSH CIWA 11-14; Start 05/24/17 at 06:30 Lorazepam (Ativan Inj) 2 mg Q1H PRN IV PUSH CIWA 15-20; Start 05/24/17 at 06:30 Lorazepam (Ativan Inj) 2 mg Q15M PRN IV PUSH CIWA > 20; Start 05/24/17 at 06:30 Vancomycin HCl (Vancomycin Inj) 1,000 mg STK-MED ONCE .ROUTE ; Start 05/24/17 at 08:52; Stop 05/24/17 at 08:53; Status DC Bupivacaine HCl/ Epinephrine Bitart (Marcaine-Epi Pf 0.25% Inj) 30 ml STK-MED ONCE .ROUTE Last administered on 05/24/17 08:52; Start 05/24/17 at 08:52; Stop 05/24/17 at 08:53; Status DC Gentamicin Sulfate (Gentamicin Inj) 160 mg STK-MED ONCE .ROUTE Last administered on 05/24/17 10:24; Start 05/24/17 at 08:52; Stop 05/24/17 at 08:53 ; Status DC Lactated Ringer's 1,000 ml @ 80 mls/hr [id number] IV Last administered on 12:00; Start 05/24/17 at 12:00 Miscellaneous Information (Post-op Orders (for Pharmacy)) STAT ONCE XX ; Start 05/24/17 at 12:00; Stop 05/24/17 at 12:01; Status DC Enoxaparin Sodium (Lovenox Inj) 30 mg Q24H SQ Last administered on 05/25/17 10 :01; Start 05/25/17 at 11:00 Cefazolin Sodium/ Dextrose 50 ml @ 100 mls/hr Q8H IV Last administered on 05/25 09:56; Start 05/24/17 at 18:00; Stop 05/25/17 at 10:29 Acetaminophen/ Hydrocodone Bitart ([place] 7.5-325 Mg) 1 tab Q3H PRN PO PAIN 3< 10; Start 05/24/17 at 12:00 Ondansetron HCl (Zofran Inj) 4 mg Q4H PRN IVP NAUSEA OR VOMITING; Start at 12:00 Calcium/Vitamin D (Oscal-D 250-125) 250 mg TID PO Last administered on 09:52; Start 05/24/17 at 13:00 Diphenhydramine HCl (Benadryl) 25 mg Q6H PRN PO ITCHING; Start 05/24/17 at 12: 00 Morphine Sulfate (Morphine Inj) 4 mg Q3H PRN IV PUSH break through pain; Start 05/24/17 at 12:00 Morphine Sulfate (*morphine INJ PERIprocedure ONLY) 8 mg STK-MED ONCE .ROUTE Last administered on 05/24/17 11:31; Start 05/24/17 at 11:31; Stop 05/24/17 at 11:32; Status DC Dexamethasone Sodium Phosphate (Decadron Inj) 4 mg STK-MED ONCE .ROUTE ; Start 05/24/17 at 11:32; Stop 05/24/17 at 11:33; Status DC Bupivacaine HCl (Marcaine Pf 0.5% Inj) 30 ml STK-MED ONCE .ROUTE ; Start at 11:32; Stop 05/24/17 at 11:33; Status DC Miscellaneous Information ALL NURSING DEPARTME... UNSCH PRN .XX SEE LABEL COMMENTS; Start 05/24/17 at 13:00; Stop 05/25/17 at 12:59 A/P Assessment and Plan A/P - right Quadriceps tendon rupture- s/p surgical repair. continue pain control- cleared by ortho for discharge. -DVT prophylaxis with subq Lovenox- per ortho. Discharge Planning dc home today with f/u by pcp and ortho. see med list. d/w the patient and RN. Alexia Rome MD May 25, 2017 10:19
[2017-05-25] MEDS ORDERED: ENOXAPARIN SODIUM 30 MG/0.3 ML SYRINGE SQ SCH (11:00)
[2017-05-25 12:00] VITALS: BP 115/59; PULSE 76; RESP 20; TEMP 99.1; O2SAT 96
--- NOTE | 2017-05-25 12:20 | HHI.DS ---
Discharge Summary Admission Date May 24, 2017 at 02:28 Discharge Date: May 25, 2017 Admitting Diagnosis quadricep tendon rupture (1) Rupture of quadriceps tendon ICD Code: S76.119A - Strain of unspecified quadriceps muscle, fascia and tendon , initial encounter Diagnosis: Principal Procedures open repair of the ruptured right Quadriceps tendon. Brief History - From Admission hx from patient, ER MD and nursing staff slipped on wet pavement during the rain fell onto right knee no syncope did not pass out takes asa 325 mg daily no premonitory symptoms had second fall after he immediately get up from the fall and realized cant support the weight no other symptoms CBC/BMP: 05/25/17 0510 05/25/17 0510 Significant Findings Laboratory Tests Test 05/24/17 05:40 05/25/17 05:10 Red Blood Count 4.01 MIL/MM3 (4.50-5.90) 3.87 MIL/MM3 (4.50-5.90) Hematocrit 38.7 % (39.0-51.0) 36.9 % (39.0-51.0) Monocytes (%) (Auto) 11.9 % (0.0-8.0) 11.6 % (0.0-8.0) Monocytes # (Auto) 1.0 TH/MM3 (0-0.9) 1.5 TH/MM3 (0-0.9) Activated Partial Thromboplast Time 23.1 SEC (24.3-30.1) Albumin 3.3 GM/DL (3.4-5.0) Alkaline Phosphatase 34 U/L (45-117) Chloride Level 108 MEQ/L (98-107) White Blood Count 13.0 TH/MM3 (4.0-11.0) Hemoglobin 12.6 GM/DL (13.0-17.0) Neutrophils # (Auto) 9.0 TH/MM3 (1.8-7.7) Random Glucose 112 MG/DL (74-106) Estimat Glomerular Filtration Rate 87 ML/MIN (>89) Imaging Last Impressions Knee X-Ray 05/24/17 0000 Signed Impressions: Service Date/Time: Wednesday, May 24, 2017 01:17 - CONCLUSION: No acute disease. Nitin Solorzano MD Chest X-Ray 05/24/17 0000 Signed Impressions: Service Date/Time: Wednesday, May 24, 2017 04:43 - CONCLUSION: No acute disease. Nitin Solorzano MD PE at Discharge GENERAL: This is a well-nourished, well-developed patient, in no apparent distress. CARDIOVASCULAR: Regular rate and regular rhythm without murmurs, gallops, or rubs. RESPIRATORY: Clear to auscultation. Breath sounds equal bilaterally. No wheezes , rales, or rhonchi. GASTROINTESTINAL: Abdomen soft, non-tender, nondistended. Normal, active bowel sounds MUSCULOSKELETAL: right lower extremity covered with clean dressing. NEURO: Alert & Oriented x4 to person, place, time, situation. Moves all ext x4 Hospital Course patient was admitted with the rupture of the right Quadriceps tendon. ortho was consulted and he underwent the surgical repair of the ruptured tendon. he was cleared by ortho for discharge with outpatient follow-up. Pt Condition on Discharge: Fair Discharge Disposition: Discharge Home Discharge Time: <= 30 minutes Discharge Instructions DIET: Follow Instructions for: As Tolerated, No Restrictions Activities you can perform: Regular-No Restrictions Other Activity Instructions: no ROM at this time. plan for advancement of ROM at discharge visit in 2 weeks Follow up Referrals: Orthopedics - 2 Weeks @ [facility] with Dylan Gonzalez MD PCP Follow-up New Medications: Hydrocodone-Acetaminophen (Hydrocodone-Acetaminophen) 7.5 Mg-325 Mg Tab 1 TAB PO Q4H PRN for PAIN, #60 TAB 0 Refills Walker/Adult/Folding (Walker/Adult/Folding) 1 Mis Mis EA .ROUTE DIRECTED, #1 0 Refills Continued Medications: Aspirin (Aspirin) 325 Mg Tab 325 MG PO DAILY, #30 TAB 0 Refills Alexia Rome MD May 25, 2017 12:20
== END 2017-05-25 14:59 | disposition home or self-care (01) | DRG 502 ==
LOC: NEPC 00:43 → NEDA 02:28 → N06B 03:28
PROVIDERS: ADMIT Internal Medicine; ATTEND Internal Medicine
PROC: 0LQL0ZZ Repair Right Upper Leg Tendon, Open Approach (ICD-10-PCS; principal; 2017-05-24 09:45)
DX: S76.111A Strain of right quadriceps muscle, fascia and tendon, initial encounter (principal); W01.0XXA Fall on same level from slipping, tripping and stumbling without subsequent striking against object, initial encounter; Y92.009 Unspecified place in unspecified non-institutional (private) residence as the place of occurrence of the external cause; Z72.0 Tobacco use
CPT/HCPCS: 71010; 73564; 80048; 80053; 85025; 85610; 85730; 93005; 94150; 99285; J0690; J1100; J1580; J1650; J2270; J3370; J7120; L1830